=== PATIENT | female | born 1950 | race Caucasian/White ===

== ENCOUNTER 2017-06-23 05:49 | Inpatient (IN) | payer MEDICARE, OTHER ==
[2017-06-23] VITALS (20 sets, daily range): BP systolic 80–142; BP diastolic 33–101
[~2017-06-23] VITALS: Ht 160 cm; Wt 177.9 kg
[2017-06-23] MEDS ORDERED: LACTATED RINGERS 1,000 ML IV ONE (07:37)
[2017-06-23] MEDS ORDERED: LACTATED RINGERS 1,000 ML IV SCH (07:45)
[2017-06-23] MEDS ORDERED: CATHETER FLUSH 10 ML SYR IV PRN (08:00)
--- NOTE | 2017-06-23 08:06 | Pulmonary Consultation ---
History of Present Illness History of Present Illness Date of Consultation 06/23/17 07:59 Time Seen by Provider: 08:51 Date of Admission History of Present Illness 67yo pt transferred here from [facility] [place] higher level of care. Pt was found to be septic with hypotension. Pt also was noted to have cellulitis and does have a hx of lympedema bilateral LE and has had purulent discharge and erythema. She has been followed by Dr. Pleitez. Pt is A&O no complications noted. I am consulted for CC management. Allergies and Home Medications Allergies Coded Allergies: levofloxacin (Verified Allergy, Unknown, 06/23/17) Home Medications Cyanocobalamin 1,000 Mcg/Ml Inj, 1,000 MCG INJ MONTHLY, (Reported) Ergocalciferol (Vitamin D2) 50,000 Unit Capsule, 50,000 UNITS PO Mo, (Reported) Escitalopram Oxalate 20 Mg Tablet, 20 MG PO DAILY, (Reported) Folic Acid 1 Mg Tablet, 1 MG PO DAILY, (Reported) Gabapentin 300 Mg Capsule, 300 MG PO TID, (Reported) Gentamicin Sulfate 15 Gm Cream..g., TOP DAILY, (Reported) APPLY TO LOWER RIGHT LEG Hydrocodone/Acetaminophen 1 Each Tablet, 1 TAB PO TID PRN for PAIN-MODERATE, ( Reported) Ibuprofen 200 Mg Tablet, 800 MG PO DAILY PRN for PAIN-MILD, (Reported) Lisinopril 5 Mg Tablet, 5 MG PO DAILY, (Reported) Lorazepam 1 Mg Tablet, 1 MG PO DAILY PRN for ANXIETY, (Reported) Tizanidine HCl 4 Mg Tablet, 4 MG PO TID PRN for MUSCLE SPASMS, (Reported) Triamcinolone Acet 15 Gm Cr, TOP BID PRN for SORES, (Reported) Past Oxnwncu-Xmuzri-Rfidru Hx Patient Social History Recent Foreign Travel: No Contact w/Someone Who Travel: No Review of Systems Time Seen by Provider: 08:54 Constitutional: Fever, Sweats, Weakness, Malaise Eyes: No: Pain, Vision change, Conjunctivae inflammation, Eyelid inflammation, Other, Redness ENT: No: Ear pain, Ear discharge, Nose pain, Nose discharge, Nose congestion, Mouth pain, Mouth swelling, Throat pain, Throat swelling, Other Respiratory: Shortness of breath, SOB with excertion, Wheezing Cardiovascular: Paroxysmal Noc. Dyspnea Neurological: Weakness, Confusion Exam Exam General Appearance: Mild Distress Respiratory: Normal Breath Sounds, No Accessory Muscle Use, No Respiratory Distress Gastrointestinal: non tender, soft, no organomegaly Neurologic/Psychiatric: Alert Skin: Normal Color, Warm/Dry Lymphatic: No Adenopathy Assessment/Plan Assessment/Plan -Acute severe sepsis -Start Vanco and Zosyn -Noe cultures -Start severe sepsis protocol -Hypotension r/o septic shock -IVF -Start SoluCortef Morbidly obese with probable OHS 255 GUY GONZALEZ DO Jun 23, 2017 08:06
[2017-06-23] MEDS ORDERED: PHARMACY TO DOSE IV SCH (08:15)
[2017-06-23] MEDS ORDERED: NS IV 1000 ML 1,000 ML IV SCH (08:31)
[2017-06-23] MEDS ORDERED: VANCOMYCIN INJECTION 2,500 MG in NS IV 500 ML 500 ML IV NR (08:39)
[2017-06-23] MEDS ORDERED: NS IV PRN (08:45)
[2017-06-23] MEDS ORDERED: NOREPINEPHRINE 4 MG/4 ML (LEVOPHED) AMP IV ONE (08:51)
[2017-06-23] MEDS ORDERED: D5W IV SOLUTION (EXCEL) 250 ML IV ONE (08:51)
[2017-06-23 08:57] LABS: BASOPHILS % (AUTO) 0 % (0-10); EOSINOPHILS % (AUTO) 0 % (0-10); LYMPHOCYTES % (AUTO) 5 % (12-44); MEAN CORPUSCULAR HEMOGLOBIN 28 PG (25-34); MEAN CORPUSCULAR HGB CONC 31 G/DL (32-36); MEAN CORPUSCULAR VOLUME 92 FL (80-99); MEAN PLATELET VOLUME 9.9 FL (7.4-10.4); MONOCYTES # (AUTO) 0.5 X 10^3 (0.0-1.0); MONOCYTES % (AUTO) 2 % (0-12); NEUTROPHILS # (AUTO) 20.3 X 10^3 (1.8-7.8); NEUTROPHILS % (AUTO) 93 % (42-75); PLATELET COUNT 275 10^3/uL (130-400); RED BLOOD COUNT 2.94 10^6/uL (4.35-5.85); RED CELL DISTRIBUTION WIDTH 15.8 % (10.0-14.5); WHITE BLOOD COUNT 21.9 10^3/uL (4.3-11.0)
--- NOTE | 2017-06-23 08:58 | Diagnostic Imaging Report ---
EXAMINATION: Portable upright radiograph of the chest. INDICATION: Sepsis. FINDINGS: The exam demonstrates minimal prominence of the interstitial markings. The heart is moderately enlarged. No effusion or pneumothorax. The mediastinum and halina appear unremarkable. There is an infusion port through the left internal jugular vein. The tip is in the upper SVC level. IMPRESSION: Cardiomegaly with question of minimal vascular congestion. Dictated by: Dictated on workstation # [id number]
[2017-06-23] MEDS: LACTATED RINGERS 1,000 ML IV SCH ×5 (09:03→23:28)
[2017-06-23] MEDS: NOREPINEPHRINE 4 MG in D5W IV SOLUTION (EXCEL) 250 ML IV SCH ×2 (09:05→21:53)
[2017-06-23 09:15] LABS: ALBUMIN 2.6 GM/DL (3.2-4.5); BILIRUBIN,TOTAL 0.4 MG/DL (0.1-1.0); CALCIUM 7.7 MG/DL (8.5-10.1); CREATININE SERUM 1.9 MG/DL (0.60-1.30); MAGNESIUM 1.2 MG/DL (1.8-2.4); PHOSPHORUS 3.7 MG/DL (2.3-4.7); POTASSIUM 4.3 MMOL/L (3.6-5.0)
[2017-06-23 09:22] LABS: ANISOCYTOSIS SLIGHT; BAND NEUTROPHILS 3 %; LYMPHOCYTES % (MANUAL) 4 %; NEUTROPHILS % (MANUAL) 93 %; POIKILOCYTOSIS SLIGHT
[2017-06-23 09:28] LABS: ABG BASE EXCESS -5.3 MMOL/L (-2.5-2.5); ABG HCO3 20 MMOL/L (23-27); ABG OXYGEN SATURATION 97 % (94-100); ABG PCO2 41 MMHG (35-45); ABG PO2 73 MMHG (79-93); ABG TCO2 21.2 MMOL/L (21.0-31.0)
[2017-06-23 09:30] LABS: ABG PH 7.31 (7.37-7.43); ALLENS TEST YES-POS
[2017-06-23] MEDS ORDERED: PIPERACILLIN/TAZOBACTAM 4.5 GM/NS 100 ML IV NR ×2 (09:30)
[2017-06-23] MEDS ORDERED: ESCI20TA45 PO (09:48)
[2017-06-23] MEDS ORDERED: FOLI1TAB24 PO (09:48)
[2017-06-23] MEDS ORDERED: GABA-488 PO (09:48)
[2017-06-23] MEDS ORDERED: LISI-556 PO (09:48)
[2017-06-23 09:51] LABS: BILIRUBIN,URINE NEGATIVE (NEGATIVE); KETONES,URINE NEGATIVE (NEGATIVE); LEUKOCYTE ESTERASE ,URINE 2+ (NEGATIVE); NITRITE,URINE NEGATIVE (NEGATIVE); PH,URINE 5 (5-9); PROTEIN,URINE 2+ (NEGATIVE); UROBILINOGEN,URINE NORMAL (NORMAL)
[2017-06-23] MEDS ORDERED: TR1C15 TOP (09:52)
[2017-06-23] MEDS ORDERED: GENT15CR6 TOP (09:52)
[2017-06-23] MEDS ORDERED: LORA1TAB PO (09:52)
[2017-06-23] MEDS ORDERED: HYDR-753 PO (09:52)
[2017-06-23] MEDS ORDERED: CNC1KV INJ (09:52)
[2017-06-23] MEDS ORDERED: TIZA4TAB3 PO (09:52)
[2017-06-23] MEDS ORDERED: ERGO50006 PO (09:52)
[2017-06-23] MEDS ORDERED: IBUP-30 PO (09:53)
--- NOTE | 2017-06-23 11:49 | History & Physical-Hospitalist ---
HPI History of Present Illness: HPI/Chief Complaint The patient is a 67-year-old white female who was referred to the hospitalist service by the nurse practitioner on duty at the [place] emergency room. She reported that the patient was significantly febrile, was hypotensive, and had a granulocytosis. She has a long history of lymphedema and open wounds on her lower legs. It was reported that there was purulent material coming from these and considerable erythema. The patient was accepted in transfer. She reports that this has been a problem of at least 4 years. She has previously seen Dr. Pleitez here and was later referred to a wound care service in [place]. Her left lower extremity is presently worse than the right. She is alert and oriented and gives a linear history. Source: patient Exam Limitations: no limitations Date Seen 06/23/17 Time Seen by Provider: 11:25 Attending Physician Lefty Hernandez MD PCP Gbai Slivestre MD Referring Physician Date of Admission Jun 23, 2017 at 06:47 Home Medications & Allergies Home Medications Reviewed patient Home Medication Reconciliation Form Allergies Allergies Coded Allergies levofloxacin (Verified Allergy, Unknown, 06/23/17) Past Ypqtywi-Zgqzqd-Goezfs Hx Patient Social History Smoking Status: Current Everyday Smoker Type Used: Cigarettes Recent Foreign Travel: No Contact w/other who traveled: No Review of Systems Constitutional: see HPI EENTM: no symptoms reported Respiratory: cough, dyspnea on exertion Cardiovascular: no symptoms reported Gastrointestinal: no symptoms reported Genitourinary: no symptoms reported Musculoskeletal: no symptoms reported Skin: see HPI, lesions Psychiatric/Neurological: No Symptoms Reported Physical Exam Physical Exam Vital Signs Vital Sign - Last 12Hours 06/23/17 06/23/17 07:00 07:05 Temp 98.2 Pulse 68 Resp 14 B/P (MAP) 88/33 (51) Pulse Ox 94 O2 Delivery Room Air Capillary Refill : General Appearance: No Apparent Distress, Other (obese) Results Results/Procedures Lab Laboratory Tests 06/23/17 08:40 Assessment/Plan Admission Diagnosis 1.cellulitis and sepsis. 2.long-standing history of lymphedema lateral lower extremities. 3.obesity. 4.tobaccoism Assessment and Plan Empiric Antibiotics. She was given a dose of meropenem at [place] at about 0100. This will be changed to Zosyn and vancomycin as the first order concern would be gram positives especially staph and strep. Clinical Quality Measures DVT/VTE Risk/Contraindication: Risk Factor Score Per Nursin RFS Level Per Nursing on Admit: 4+=Very High LEFTY HERNANDEZ MD Jun 23, 2017 11:49
[2017-06-23] MEDS: PIPERACILLIN SODIUM/TAZOBACTAM 4.5 GM in NS (IVPB) 100 ML IV SCH ×2 (15:13→23:09)
[2017-06-23] MEDS: HYDROCORTISONE 100 MG/2 ML (Solu-CORTEF) VIAL IV SCH ×2 (15:14→23:08)
[2017-06-23] MEDS: MAGNESIUM 1 GM/D5W 100 ML IVPB IV SCH ×2 (16:21→18:22)
[2017-06-23] MEDS ORDERED: INFLUENZA TRIvalent 2017-2018 0.5 ML/45 MCG SYR IM ONE (18:15)
--- NOTE | 2017-06-23 20:38 | Wound Care Progress Note ---
Subjective Subjective Subjective/Events-last exam 67 year old female with morbid obesity, debility and chronic intractable lymphedema. She has chronic intermittent ulceration of both of her calves, and is currently managed by Dr. Laureano at the [facility]. The patient has been referred in the past to the Lymphedema clinic here, but has been unable to follow with them due to logistics. The existing orders for management of leg ulceration have been re-ordered. PMH: morbid obesity, debility. Review of Systems Date Seen by Provider: Jun 23, 2017 Time Seen by Provider: 15:00 General: Fatigue Pulmonary: No Dyspnea Cardiovascular: No: Chest Pain Objective Exam Last Set of Vital Signs Vital Signs Date Time Temp Pulse Resp B/P (MAP) Pulse Ox O2 Delivery O2 Flow Rate FiO2 06/23/17 18:00 61 24 114/70 (85) 95 Room Air 06/23/17 16:24 98.0 Capillary Refill : General: No Acute Distress Lungs: Normal Air Movement Skin: Other (Extensive skin changes of both calves, with clustered ulceration of the L lateral calf area. Moderate cellulitis of the L calf.) Results Lab Laboratory Tests 06/23/17 08:40: White Blood Count 21.9H, Red Blood Count 2.94L, Hemoglobin 8.3L, Hematocrit 27L , Mean Corpuscular Volume 92, Mean Corpuscular Hemoglobin 28, Mean Corpuscular Hemoglobin Concent 31L, Red Cell Distribution Width 15.8H, Platelet Count 275, Mean Platelet Volume 9.9, Neutrophils (%) (Auto) 93H, Lymphocytes (%) (Auto) 5L , Monocytes (%) (Auto) 2, Eosinophils (%) (Auto) 0, Basophils (%) (Auto) 0, Neutrophils # (Auto) 20.3H, Lymphocytes # (Auto) 1.0, Monocytes # (Auto) 0.5, Eosinophils # (Auto) 0.0, Basophils # (Auto) 0.0, Neutrophils % (Manual) 93, Lymphocytes % (Manual) 4, Band Neutrophils 3, Toxic Granulation 2+, Poikilocytosis SLIGHT, Basophilic Stippling SLIGHT, Anisocytosis SLIGHT, Sodium Level 133L, Potassium Level 4.3, Chloride Level 104, Carbon Dioxide Level 19L, Anion Gap 10, Blood Urea Nitrogen 35H, Creatinine 1.90H, Estimat Glomerular Filtration Rate 26, BUN/Creatinine Ratio 18, Glucose Level 107H, Lactic Acid Level 0.87, Calcium Level 7.7L, Phosphorus Level 3.7, Magnesium Level 1.2L, Total Bilirubin 0.4, Aspartate Amino Transf (AST/SGOT) 17, Alanine Aminotransferase (ALT/SGPT) 6, Alkaline Phosphatase 85, Total Protein 6.0L, Albumin 2.6L 06/23/17 09:20: Blood Gas Puncture Site Left Radial, Blood Gas Patient Temperature 98.0, Arterial Blood pH 7.31*L, Arterial Blood Partial Pressure CO2 41, Arterial Blood Partial Pressure O2 73L, Arterial Blood HCO3 20L, Arterial Blood Total CO2 21.2, Arterial Blood Oxygen Saturation 97, Arterial Blood Base Excess -5.3L , Daniel Test YES-POS, Blood Gas Ventilator Setting NO, Blood Gas Inspired Oxygen Room Air 06/23/17 09:45: Urine Color YELLOW, Urine Clarity CLEAR, Urine pH 5, Urine Specific [place] 1.010L, Urine Protein 2+H, Urine Glucose (UA) NEGATIVE, Urine Ketones NEGATIVE, Urine Nitrite NEGATIVE, Urine Bilirubin NEGATIVE, Urine Urobilinogen NORMAL, Urine Leukocyte Esterase 2+H, Urine RBC (Auto) 5+H, Urine RBC 10-25H, Urine WBC 5-10H, Urine Squamous Epithelial Cells 2-5, Urine Crystals PRESENTH, Urine Amorphous Sediment FEW GABINO URATESH, Urine Bacteria FEWH, Urine Casts NONE, Urine Mucus NEGATIVE, Urine Culture Indicated YES Assessment/Plan Assessment/Plan Assessment/Plan 1. Massive bilateral leg lymphedema, refractory to management. 2. Chronic intermittent and recurrent ulceration of calves, currently involving L calf. 3. Morbid obesity. 4. Debility. Plan: Previous dressings per Dr. Laureano at [facility] are ordered. the patient is recommended to elevate her legs as much as possible. At discharge, the patient should continue to follow at [facility]. ARNOLD RAMOS MD Jun 23, 2017 20:38
[2017-06-23] MEDS: fentaNYL INJECTION 100 MCG/2 ML AMP IV PRN (20:55)
[2017-06-23] MEDS: HYDROcodone/APAP 5 MG/325 MG (LORTAB) TAB PO PRN (20:55)
[2017-06-24] VITALS (12 sets, daily range): BP systolic 102–125; BP diastolic 48–64
[2017-06-24] MEDS: LACTATED RINGERS 1,000 ML IV SCH (03:28)
[2017-06-24 04:48] LABS: BASOPHILS % (AUTO) 0 % (0-10); EOSINOPHILS % (AUTO) 0 % (0-10); LYMPHOCYTES # (AUTO) 0.7 X 10^3 (1.0-4.0); LYMPHOCYTES % (AUTO) 4 % (12-44); MEAN CORPUSCULAR HEMOGLOBIN 29 PG (25-34); MEAN CORPUSCULAR HGB CONC 31 G/DL (32-36); MEAN CORPUSCULAR VOLUME 91 FL (80-99); MEAN PLATELET VOLUME 10.2 FL (7.4-10.4); MONOCYTES # (AUTO) 0.3 X 10^3 (0.0-1.0); MONOCYTES % (AUTO) 2 % (0-12); NEUTROPHILS # (AUTO) 18.8 X 10^3 (1.8-7.8); NEUTROPHILS % (AUTO) 95 % (42-75); PLATELET COUNT 241 10^3/uL (130-400); RED BLOOD COUNT 2.81 10^6/uL (4.35-5.85); RED CELL DISTRIBUTION WIDTH 15.6 % (10.0-14.5); WHITE BLOOD COUNT 19.8 10^3/uL (4.3-11.0)
[2017-06-24 05:11] LABS: CALCIUM 8.1 MG/DL (8.5-10.1); CREATININE SERUM 1.17 MG/DL (0.60-1.30); MAGNESIUM 1.7 MG/DL (1.8-2.4); PHOSPHORUS 3.3 MG/DL (2.3-4.7); POTASSIUM 4.6 MMOL/L (3.6-5.0)
[2017-06-24] MEDS ORDERED: POTASSIUM CL 10MEQ/50ML IVPB 50 ML IV SCH (06:00)
[2017-06-24] MEDS ORDERED: KCL 20 MEQ TAB (K-DUR) PO SCH (06:00)
[2017-06-24] MEDS ORDERED: MAGNESIUM 1 GM/100 ML IVPB 100 ML IV SCH (06:00)
[2017-06-24] MEDS: HYDROCORTISONE 100 MG/2 ML (Solu-CORTEF) VIAL IV SCH (06:09)
[2017-06-24] MEDS: MAGNESIUM 1 GM/100 ML IVPB 100 ML IV SCH ×2 (06:10→08:47)
--- NOTE | 2017-06-24 06:48 | Pulmonary Progress Note ---
Subjective Time Seen by Provider: 06:50 Subjective/Events-last exam PT is doing much better. Exam Exam Vital Signs Date Time Temp Pulse Resp B/P (MAP) Pulse Ox O2 Delivery O2 Flow Rate FiO2 06/24/17 06:00 45 15 111/53 (72) 95 Room Air 06/24/17 05:02 98.6 06/24/17 05:00 45 16 104/48 (66) 97 Room Air 06/24/17 04:00 47 16 118/63 (81) 94 Room Air 06/24/17 04:00 Nasal Cannula 2.00 06/24/17 03:00 48 18 117/57 (77) 97 Room Air 06/24/17 02:00 56 21 125/64 (84) 96 Room Air 06/24/17 01:00 52 06/24/17 01:00 52 16 123/63 (83) 97 Room Air 06/24/17 00:13 97.1 06/24/17 00:00 Room Air 06/24/17 00:00 58 10 116/60 (78) 98 Room Air 06/23/17 23:00 62 23 125/61 (82) 95 Room Air 06/23/17 22:00 69 15 111/41 (64) 95 Room Air 06/23/17 21:00 67 14 110/52 (71) 97 Room Air 06/23/17 20:00 67 16 142/69 (93) 100 Room Air 06/23/17 20:00 Room Air 06/23/17 19:30 98.7 06/23/17 19:00 56 06/23/17 19:00 56 19 103/49 (67) 91 Room Air 06/23/17 18:00 61 24 114/70 (85) 95 Room Air 06/23/17 17:00 67 14 124/60 (81) 89 Room Air 06/23/17 16:24 98.0 06/23/17 16:10 Room Air 06/23/17 16:00 64 11 114/71 (85) 92 Room Air 06/23/17 15:00 61 22 110/101 (104) 92 Room Air 06/23/17 14:00 53 14 110/55 (73) 99 Room Air 06/23/17 13:00 53 17 107/53 (71) 94 Room Air 06/23/17 13:00 53 06/23/17 12:00 56 16 103/49 (67) 95 Room Air 06/23/17 11:27 Room Air 06/23/17 11:17 99.1 56 14 114/49 (70) 98 Room Air 06/23/17 11:00 60 17 103/44 (63) 100 Room Air 06/23/17 10:00 52 34 119/62 (81) 92 Room Air 06/23/17 09:30 136/56 (82) 06/23/17 09:00 53 19 80/54 (63) 100 Room Air 06/23/17 08:00 Room Air 06/23/17 08:00 55 16 81/38 (52) 93 Room Air 06/23/17 08:00 97.7 06/23/17 07:05 98.2 65 16 100/38 (58) 93 Room Air 06/23/17 07:00 64 14 88/33 (51) 94 Room Air 06/23/17 07:00 68 I & O 06/24/17 07:00 Intake Total 5525 ml Output Total 2825 ml Balance 2700 ml General Appearance: No Apparent Distress, Other (obese) Respiratory: Normal Breath Sounds, No Accessory Muscle Use, No Respiratory Distress Gastrointestinal: non tender, soft, no organomegaly Neurologic/Psychiatric: Alert Skin: Normal Color, Warm/Dry Lymphatic: No Adenopathy Results Lab Laboratory Tests 06/23/17 08:40 06/24/17 04:35 Assessment/Plan Assessment/Plan -Acute severe sepsis secondary to UTI -Vanco and Zosyn -Noe cultures -Start severe sepsis protocol -Hypotension r/o septic shock -IVF -SoluCortef -d/c -Off Levophed Morbidly obese with probable OHS Pt is doing well will transfer to [facility]. 233 Clinical Quality Measures DVT/VTE Risk/Contraindication: Risk Factor Score Per Nursin RFS Level Per Nursing on Admit: 4+=Very High GUY GONZALEZ DO Jun 24, 2017 06:48
[2017-06-24] MEDS ORDERED: VANCOMYCIN INJECTION 2,250 MG in NS IV 500 ML 500 ML IV SCH (09:00)
[2017-06-24] MEDS: PIPERACILLIN SODIUM/TAZOBACTAM 4.5 GM in NS (IVPB) 100 ML IV SCH ×3 (09:49→23:53)
[2017-06-24] MEDS: HYDROcodone/APAP 5 MG/325 MG (LORTAB) TAB PO PRN (09:58)
[2017-06-24] MEDS: fentaNYL INJECTION 100 MCG/2 ML AMP IV PRN (09:58)
--- NOTE | 2017-06-24 10:06 | Diagnostic Imaging Report ---
INDICATION: Dyspnea. Frontal chest obtained at 4:41 a.m. FINDINGS: There is cardiomegaly with mild central vascular prominence. There is tortuosity of the aorta. Port-A-Cath is unchanged. There is no focal infiltrate or pneumothorax or pleural fluid. IMPRESSION: Cardiomegaly and mild central vascular prominence. No focal infiltrate or pneumothorax or pleural fluid. Dictated by: Dictated on workstation # [id number]
[2017-06-24] MEDS ORDERED: TRIAMCINOLONE 0.1% CR (KENALOG) 15 GM TUBE TOP PRN (10:30)
[2017-06-24] MEDS ORDERED: CYANOCOBALAMIN INJ 1000 MCG/ML INJ SCH (10:30)
[2017-06-24] MEDS ORDERED: IBUPROFEN 800 MG (MOTRIN) TAB PO PRN (10:30)
--- NOTE | 2017-06-24 11:19 | Progress Note-Hospitalist ---
Progress Note HPI/CC on Admission The patient is a 67-year-old white female who was referred to the hospitalist service by the nurse practitioner on duty at the [place] emergency room. She reported that the patient was significantly febrile, was hypotensive, and had a granulocytosis. She has a long history of lymphedema and open wounds on her lower legs. It was reported that there was purulent material coming from these and considerable erythema. The patient was accepted in transfer. She reports that this has been a problem of at least 4 years. She has previously seen Dr. Pleitez here and was later referred to a wound care service in [place]. Her left lower extremity is presently worse than the right. She is alert and oriented and gives a linear history. Progress Notes/Assess & Plan Date Seen 06/24/17 Time Seen by Provider: 10:15 Diagonsis/Assessment & Plan Chart Review: WBC 19.8 On Zosyn Creat 1.9 to 1.1 Urine cx showed E. coli softball umpire: Was in ICU yesterday for cellulitis Pt seems okay and is afebrile On Zosyn Pt sees wound care has alginates and gentamicin on legs. Dr. Pleitez has been consulted. Patient Interview: Pt confirms Dr. Silvestre as PCP. Pt denies always having a catheter. Pt is okay with DC catheter today. Pt confirms some incontinence. Pt was informed that she does have a bladder infection Pt confirms pain, but in her left leg especially. Pt confirms [place] wound care ; pt had an appointment was set for today, but will reschedule after DC. Physical exam stable. Pt states she lives in [place], [place] and has had abx at home before, pt states she has a port Pt was informed that her labs are to be done tomorrow Pt is okay with DC tomorrow Pt denies having home meds restarted. Pt states she wears layered pads and diapers due to incontinence and this was discussed. I informed the pt that I will discussed this further with RN Clay MENDOZA, chronically ill, O x 3, obese RRR, CTAB chronic lower extremity edema w/blisters and chronic venous stasis changes with improved erythema Assessment: Sepsis with hypoxia due to lower extremity cellulitis Severe lymphedema Chronic venous stasis ulcers of lower legs Morbid obesity Edema UTI acute Depression Anxiety Incontinence Plan: Reconcile home meds Labs in am Abx at home DC catheter Possible DC Thursday and may need IV abx at DC Scribed by Annia Henriquez under direct supervision of Dr. Ana Martinez. ANA MARTINEZ DO Jun 24, 2017 11:19
[2017-06-24] MEDS: HYDROcodone/APAP 10 MG/325 MG (LORTAB) TAB PO PRN (16:02)
[2017-06-24] MEDS: GABAPENTIN 300 MG (NEURONTIN) CAP PO SCH ×2 (16:02→20:49)
[2017-06-25] VITALS: BP 94/50
[2017-06-25 04:00] VITALS: BP 128/56
[2017-06-25 05:37] LABS: BASOPHILS % (AUTO) 0 % (0-10); EOSINOPHILS # (AUTO) 0.1 10^3/uL (0.0-0.3); EOSINOPHILS % (AUTO) 1 % (0-10); LYMPHOCYTES # (AUTO) 2.1 X 10^3 (1.0-4.0); LYMPHOCYTES % (AUTO) 18 % (12-44); MEAN CORPUSCULAR HEMOGLOBIN 28 PG (25-34); MEAN CORPUSCULAR HGB CONC 31 G/DL (32-36); MEAN CORPUSCULAR VOLUME 90 FL (80-99); MEAN PLATELET VOLUME 10.4 FL (7.4-10.4); MONOCYTES # (AUTO) 0.5 X 10^3 (0.0-1.0); MONOCYTES % (AUTO) 4 % (0-12); NEUTROPHILS # (AUTO) 9.5 X 10^3 (1.8-7.8); NEUTROPHILS % (AUTO) 77 % (42-75); PLATELET COUNT 295 10^3/uL (130-400); RED BLOOD COUNT 3.09 10^6/uL (4.35-5.85); RED CELL DISTRIBUTION WIDTH 15.6 % (10.0-14.5); WHITE BLOOD COUNT 12.2 10^3/uL (4.3-11.0)
[2017-06-25 05:57] LABS: CALCIUM 8.4 MG/DL (8.5-10.1); CREATININE SERUM 1.28 MG/DL (0.60-1.30); MAGNESIUM 1.9 MG/DL (1.8-2.4); PHOSPHORUS 3.1 MG/DL (2.3-4.7); POTASSIUM 3.9 MMOL/L (3.6-5.0)
[2017-06-25] MEDS: PIPERACILLIN SODIUM/TAZOBACTAM 4.5 GM in NS (IVPB) 100 ML IV SCH ×3 (06:43→23:41)
[2017-06-25 07:43] VITALS: BP 126/60
[2017-06-25] MEDS ORDERED: TROUGH ORDER-PHARMACY XX NR (08:00)
[2017-06-25] MEDS ORDERED: ONDANSETRON 4 MG (ZOFRAN) ORAL DISSOLVE TAB PO PRN (08:00)
[2017-06-25] MEDS: GABAPENTIN 300 MG (NEURONTIN) CAP PO SCH ×3 (09:10→20:10)
[2017-06-25] MEDS: HYDROcodone/APAP 10 MG/325 MG (LORTAB) TAB PO PRN (09:10)
[2017-06-25] MEDS: FOLIC ACID 1 MG TAB PO SCH (09:10)
[2017-06-25] MEDS: lisINopril 5 MG (PRINIVIL) TABLET PO SCH (09:10)
[2017-06-25] MEDS ORDERED: CEFE2FRO IV (10:33)
--- NOTE | 2017-06-25 10:52 | Progress Note-Hospitalist ---
Progress Note HPI/CC on Admission The patient is a 67-year-old white female who was referred to the hospitalist service by the nurse practitioner on duty at the [place] emergency room. She reported that the patient was significantly febrile, was hypotensive, and had a granulocytosis. She has a long history of lymphedema and open wounds on her lower legs. It was reported that there was purulent material coming from these and considerable erythema. The patient was accepted in transfer. She reports that this has been a problem of at least 4 years. She has previously seen Dr. Pleitez here and was later referred to a wound care service in [place]. Her left lower extremity is presently worse than the right. She is alert and oriented and gives a linear history. Progress Notes/Assess & Plan Date Seen 06/25/17 Time Seen by Provider: 11:00 Diagonsis/Assessment & Plan Chart Review: No fever WBC down to 12.2 Hgb [address] Laureano Review: Dr. Laureano is okay with the Cefepime treatment. Pt has chronic disease and was usually seen weekly, but is now being seen every two weeks due to the pt's travel issues. Pharmacy Review: Pt is okay to DC on a course of Cefepime 2 g twice a day, then do wound care out -pt at [facility] with Dr. Laureano Patient Interview: Pt states she is doing well; she got up this am to have a BM and void. Pt states she then felt nauseous, then ate breakfast and had her legs changed. Labs were discussed and look better. Pt states she lives at home and her son sometimes is with her. Pt states she is going to have her son and daughter work out a schedule so one of them will be with her. Pt states she also has home health. Pt states she is okay with DC tomorrow and pt was informed that I need to check into her abx to see if she is okay to DC. Physical exam stable. Pt states she is good at changing her dressings by herself. AFVSS, Ple[place], chronically ill, O x 3, obese RRR, CTAB chronic lower extremity edema w/blisters and chronic venous stasis changes with improved erythema Assessment: Sepsis with hypoxia due to lower extremity cellulitis Severe lymphedema Chronic venous stasis ulcers of lower legs Morbid obesity Edema UTI acute Depression Anxiety Incontinence Plan: Labs in am IV Abx at home with HH Possible DC tomorrow Thursday and will need IV abx at DC Follow up with Dr. Laureano, wound care, on 06/30/17 at 1030 Cefepime 2 gms IV Q 12 hours Scribed by Annia Henriquez under direct supervision of Dr. Ana Martinez. ANA MARTINEZ DO Jun 25, 2017 10:52
[2017-06-25 12:53] VITALS: BP 112/62
[2017-06-25] MEDS: LORazepam 1 MG (ATIVAN) TAB PO PRN (15:57)
[2017-06-25 16:13] VITALS: BP 97/57
[2017-06-25 19:31] VITALS: BP 106/70
[2017-06-26] VITALS: BP 112/57
[2017-06-26 06:04] LABS: BASOPHILS % (AUTO) 0 % (0-10); EOSINOPHILS # (AUTO) 0.1 10^3/uL (0.0-0.3); EOSINOPHILS % (AUTO) 1 % (0-10); LYMPHOCYTES % (AUTO) 23 % (12-44); MEAN CORPUSCULAR HEMOGLOBIN 29 PG (25-34); MEAN CORPUSCULAR HGB CONC 31 G/DL (32-36); MEAN CORPUSCULAR VOLUME 93 FL (80-99); MEAN PLATELET VOLUME 10.3 FL (7.4-10.4); MONOCYTES # (AUTO) 0.6 X 10^3 (0.0-1.0); MONOCYTES % (AUTO) 7 % (0-12); NEUTROPHILS # (AUTO) 5.8 X 10^3 (1.8-7.8); NEUTROPHILS % (AUTO) 68 % (42-75); PLATELET COUNT 292 10^3/uL (130-400); RED BLOOD COUNT 2.81 10^6/uL (4.35-5.85); RED CELL DISTRIBUTION WIDTH 15.9 % (10.0-14.5); WHITE BLOOD COUNT 8.5 10^3/uL (4.3-11.0)
[2017-06-26 06:27] LABS: CREATININE SERUM 1.11 MG/DL (0.60-1.30); POTASSIUM 4.6 MMOL/L (3.6-5.0)
[2017-06-26 06:28] LABS: CALCIUM 8.4 MG/DL (8.5-10.1); MAGNESIUM 1.8 MG/DL (1.8-2.4); PHOSPHORUS 4.5 MG/DL (2.3-4.7)
[2017-06-26] MEDS: HYDROcodone/APAP 10 MG/325 MG (LORTAB) TAB PO PRN (06:38)
[2017-06-26] MEDS: PIPERACILLIN SODIUM/TAZOBACTAM 4.5 GM in NS (IVPB) 100 ML IV SCH (07:54)
[2017-06-26 08:00] VITALS: BP 131/62
[2017-06-26] MEDS: GABAPENTIN 300 MG (NEURONTIN) CAP PO SCH ×2 (08:53→12:02)
[2017-06-26] MEDS: lisINopril 5 MG (PRINIVIL) TABLET PO SCH (08:53)
[2017-06-26] MEDS: FOLIC ACID 1 MG TAB PO SCH (08:53)
[2017-06-26] MEDS ORDERED: HYDR-753 PO (10:48)
--- NOTE | 2017-06-26 10:51 | D/C HH Face to Face Order ---
D/C Face to Face Orders Instructions for Patient Patient Instructions/FollowUp: Dr Laureano at Wound care 06/30/[address] Silvestre in 1 week Physician to follow Patient: Dr Gabi Silvestre Discharge Diet for Home: No Restrictions Patient Problems: Cellulitis and complex lower extremity wounds Lymphedema Patient Data-Allergies,Ht & Wt Patient Allergies: Coded Allergies: levofloxacin (Verified Allergy, Unknown, 06/23/17) Height (Feet): 5 Height (Inches): 3.00 Weight (Pounds): 392 Weight (Ounces): 3.0 Home Health Need/Face to Face Date of Face to Face: Jun 26, 2017 Clinical Findings: Instability, Pain with ambulation, Unsteady gait, Wound infection, Non-healing wound I have seen Pt [id number]: Yes Discharged To: Home Diagnosis/Conditions: Cellulitis and complex lower extremity wounds Lymphedema Problems/Diagnosis/Condition: Patient is Homebound due to: Pat fall risk due to instabilty, Pain w/ ambulation Homebound Status Due to the above stated illness, injury or surgical procedure (medical condition or diagnosis) and associated clinical findings, the patient is homebound because of his/her inability to leave home except with aid of a supportive device and/or person AND leaving the home requires a considerable and taxing effort or is medically contraindicated. Pt req the following assistanc: [facility] Nursing Orders Home Health Services Order: Nursing Services, Physical Therapy-Evaluate & Treat Home Health Infusion Therapy Line Type: [place] Site Location: Chest Certify Stmt I certify that this patient is under my care and that I, a nurse practitioner or a physician; a clothing sales assistant working with me, had a face to face encounter that - meets the physician face to face encounter requirements with this patient as dated. VIDA MARTINEZ DO Jun 26, 2017 10:51
--- NOTE | 2017-06-26 11:07 | Discharge Summary-Hospitalist ---
Diagnosis/Chief Complaint Date of Admission Jun 23, 2017 at 06:47 Date of Discharge Discharge Date: Jun 26, 2017 Admission Diagnosis 1.cellulitis and sepsis. 2.long-standing history of lymphedema lateral lower extremities. 3.obesity. 4.tobaccoism Discharge Diagnosis Assessment: Sepsis with hypoxia due to lower extremity cellulitis Severe lymphedema Chronic venous stasis ulcers of lower legs Morbid obesity Edema UTI acute Depression Anxiety Incontinence Plan: Labs in am IV Abx at home with HH Possible DC tomorrow Thursday and will need IV abx at DC Follow up with Dr. Laureano, wound care, on 06/30/17 at 100 Cefepime 2 gms IV Q 12 hours Scribed by Annia Henriquez under direct supervision of Dr. Ana Martinez. Discharge Summary Discharge Physical Examination Allergies: Coded Allergies: levofloxacin (Verified Allergy, Unknown, 06/23/17) Vitals & I&Os Vital Signs Date Time Temp Pulse Resp B/P (MAP) Pulse Ox O2 Delivery O2 Flow Rate FiO2 06/26/17 08:00 98.6 62 20 131/62 (85) 97 Room Air 06/24/17 04:00 2.00 Hospital Course Chart Review: No fever Vitals stable WBC normal 8.5 Hgb 8 CMP normal Creat 1.1 SW Review: Pt was upset yesterday Pt wants to go home and refuses to be swung. Pt will DC home Patient Interview: Pt states she is ready to go home. I informed the pt that Dr. Silvestre wants to see next week. Pt will schedule herself. I also informed the pt that her Dr. Laureano appointment is on Thursday at 1030. Pt states that her family will be able to get her there Physical exam stable. Lungs sound perfect. Pt states she needs pain prescription for Hydrocodone Pt discussed how the rn social services frightened her yesterday. Pt states she is not worried about the abx or extending it. AFVSS, Pleasant, O x 3 RRR, CTAB Plan: Follow up with Dr. Silvestre and Dr. Laureano Hydrocodone prescription DC Scribed by Annia Henriquez under direct supervision of Dr. Ana Martinez. Labs (last 24 hrs) Laboratory Tests 06/26/17 05:47: White Blood Count 8.5, Red Blood Count 2.81L, Hemoglobin 8.0L, Hematocrit 26L, Mean Corpuscular Volume 93, Mean Corpuscular Hemoglobin 29, Mean Corpuscular Hemoglobin Concent 31L, Red Cell Distribution Width 15.9H, Platelet Count 292, Mean Platelet Volume 10.3, Neutrophils (%) (Auto) 68, Lymphocytes (%) (Auto) 23 , Monocytes (%) (Auto) 7, Eosinophils (%) (Auto) 1, Basophils (%) (Auto) 0, Neutrophils # (Auto) 5.8, Lymphocytes # (Auto) 2.0, Monocytes # (Auto) 0.6, Eosinophils # (Auto) 0.1, Basophils # (Auto) 0.0, Sodium Level 142, Potassium Level 4.6, Chloride Level 112H, Carbon Dioxide Level 22, Anion Gap 8, Blood Urea Nitrogen 24H, Creatinine 1.11, Estimat Glomerular Filtration Rate 49, BUN/ Creatinine Ratio 22, Glucose Level 100, Calcium Level 8.4L, Phosphorus Level 4.5 , Magnesium Level 1.8 Microbiology 06/23/17 Blood Culture - Preliminary, Resulted No growth 06/23/17 Urine Culture - Final, Complete Escherichia Coli Pending Labs Laboratory Tests 06/26/17 05:47: White Blood Count 8.5, Red Blood Count 2.81, Hemoglobin 8.0, Hematocrit 26, Mean Corpuscular Volume 93, Mean Corpuscular Hemoglobin 29, Mean Corpuscular Hemoglobin Concent 31, Red Cell Distribution Width 15.9, Platelet Count 292, Mean Platelet Volume 10.3, Neutrophils (%) (Auto) 68, Lymphocytes (%) (Auto) 23 , Monocytes (%) (Auto) 7, Eosinophils (%) (Auto) 1, Basophils (%) (Auto) 0, Neutrophils # (Auto) 5.8, Lymphocytes # (Auto) 2.0, Monocytes # (Auto) 0.6, Eosinophils # (Auto) 0.1, Basophils # (Auto) 0.0, Sodium Level 142, Potassium Level 4.6, Chloride Level 112, Carbon Dioxide Level 22, Anion Gap 8, Blood Urea Nitrogen 24, Creatinine 1.11, Estimat Glomerular Filtration Rate 49, BUN/ Creatinine Ratio 22, Glucose Level 100, Calcium Level 8.4, Phosphorus Level 4.5 , Magnesium Level 1.8 Discharge Home Medications: Active Scripts Active [place] 10-325 Tablet (Hydrocodone/Acetaminophen) 1 Each Tablet 1 Tab PO TID PRN Cefepime 2 gm Injection (Cefepime HCl/Dextrose, Iso-Osm) 2 Gm/100 Ml Froz.piggy 2 Gm IV BID 5 Days Reported Advil (Ibuprofen) 200 Mg Tablet 800 Mg PO DAILY PRN Triamcinolone Acetonide 0.1% Cream (Triamcinolone Acet) 15 Gm Cr TOP BID PRN Vitamin D2 (Ergocalciferol (Vitamin D2)) 50,000 Unit Capsule 50,000 Units PO MO Cyanocobalamin Injection (Cyanocobalamin) 1,000 Mcg/Ml Inj 1,000 Mcg INJ MONTHLY Tizanidine HCl 4 Mg Tablet 4 Mg PO TID PRN Lorazepam 1 Mg Tablet 1 Mg PO DAILY PRN Gentamicin Sulfate 15 Gm Cream..g. TOP DAILY APPLY TO LOWER RIGHT LEG Gabapentin 300 Mg Capsule 300 Mg PO TID Escitalopram Oxalate 20 Mg Tablet 20 Mg PO DAILY Folic Acid 1 Mg Tablet 1 Mg PO DAILY Lisinopril 5 Mg Tablet 5 Mg PO DAILY Instructions to patient/family Please see electronic discharge instructions given to patient. Clinical Quality Measures DVT/VTE Risk/Contraindication: Risk Factor Score Per Nursin RFS Level Per Nursing on Admit: 4+=Very High ANA MARTINEZ DO Jun 26, 2017 11:07
[2017-06-26] MEDS ORDERED: CEFEPIME 2 GM/NS 50 ML IVPB IV NR ×2 (11:30)
[2017-06-26] MEDS: LORazepam 1 MG (ATIVAN) TAB PO PRN (12:02)
[2017-06-26 15:23] VITALS: BP 131/62
[2017-06-29] MEDS ORDERED: VITAMIN D2 50,000 UNITS (1.25 MG) CAP PO SCH (10:30)
== END 2017-06-26 14:38 | disposition home health service (06) | DRG 872 ==
LOC: ICU 06:47 → 4TH 06-24 07:30
PROVIDERS: ADMIT Internal Medicine; ATTEND Internal Medicine
DX: A41.9 Sepsis, unspecified organism (principal); R65.20 Severe sepsis without septic shock; L03.116 Cellulitis of left lower limb; N39.0 Urinary tract infection, site not specified; L97.229 Non-pressure chronic ulcer of left calf with unspecified severity; L97.219 Non-pressure chronic ulcer of right calf with unspecified severity; E66.2 Morbid (severe) obesity with alveolar hypoventilation; Z68.44 Body mass index [BMI] 60.0-69.9, adult; I89.0 Lymphedema, not elsewhere classified; R53.81 Other malaise; F17.210 Nicotine dependence, cigarettes, uncomplicated; I87.2 Venous insufficiency (chronic) (peripheral); F32.9 Major depressive disorder, single episode, unspecified; F41.9 Anxiety disorder, unspecified; R32 Unspecified urinary incontinence
CPT/HCPCS: 36415; 71010; 80048; 80053; 81000; 82805; 83605; 83735; 84100; 85007; 85025; 85027; 87040; 87077; 87088; 87186